=== PATIENT | male | born 1930 | race Caucasian/White ===

== ENCOUNTER → 2016-07-08 | Outpatient (CLI) | payer MEDICARE, OTHER ==
[~2016-07-08] MED LIST: ASPIRIN EC81 MG PO; BROVANA15 MCG/2 M IH; CALCIUM 600 +1 EAC4 PO; KLOR-CON20 MEQ PO; LASIX40 M1 PO; METOPROLOL TART25 MG PO; MULTIVITAMINS1 EAC1 PO; NITROGLYCERIN0.4 MG SL; PREDNISONE PO; PRESERVISION L1 EACH PO; PRILOSEC DPS20 MG PO; PULMICORT0.5 MG/2 M IH; WARFARIN SODIU7.5 MG PO; WARFARIN SODIUM5 MG PO; XANAX0.5 MG PO; ZOLOFT50 MG PO
== END | disposition home or self-care (01) ==
LOC: RAD.S 08:19
DX: R10.9 Unspecified abdominal pain (principal); R18.8 Other ascites; K82.8 Other specified diseases of gallbladder; N28.1 Cyst of kidney, acquired; J90 Pleural effusion, not elsewhere classified; R11.0 Nausea

== ENCOUNTER 2016-11-28 10:29 | Emergency (ER) | payer MEDICARE, OTHER ==
--- NOTE | 2016-12-01 09:47 | ER ---
ADMIT: 11/28/2016 RM/LOC: ER [facility] MR#: [id number] [address] [id number] PAOLO ROBERT [address] [place] [id number] Emergency Room Report SEX: M AGE: 85 : 1930 DATE: 11/28/2016 ADDENDUM: An 85-year-old white male with known COPD, anxiety, coming in anxious, short of breath. He has kind of had these episodes before. His labs essentially are negative though his potassium is borderline at 2.9. CTA was done, it shows bilateral pleural effusions, but no pneumonia or clots. I spoke with Dr. Simon. We are going to discharge him home to increase his potassium from 20 mEq a day to 40 mEq a day, and then he is going to be rechecked in the office in the morning. CONDITION ON DISCHARGE: Improved. Albino Bethea MD/ shae JOB #: [id number] CC: Albino Bethea MD, Attending Physician June Cook MD, Family Physician
== END 2016-11-28 14:30 | disposition home or self-care (01) ==
LOC: ER 10:29
DX: E87.6 Hypokalemia (principal); J44.9 Chronic obstructive pulmonary disease, unspecified; J90 Pleural effusion, not elsewhere classified; F41.9 Anxiety disorder, unspecified; I48.91 Unspecified atrial fibrillation; I25.10 Atherosclerotic heart disease of native coronary artery without angina pectoris; Z88.8 Allergy status to other drugs, medicaments and biological substances